=== PATIENT | female | born 1970 | race Hispanic/Latino ===

== ENCOUNTER 2017-05-22 10:35 | Emergency (ER) | payer OTHER ==
[~2017-05-22] VITALS: Ht 152.4 cm; Wt 62.0 kg
[2017-05-22] MEDS ORDERED: FLEXERIL PO (12:28)
[2017-05-22] MEDS ORDERED: ULTRAM50 M1 PO (12:28)
[2017-05-22 13:12] VITALS: BP 138/79
== END 2017-05-22 13:12 | disposition home or self-care (01) | DRG 605 ==
LOC: ED 10:35
DX: S00.93XA Contusion of unspecified part of head, initial encounter (principal); S13.9XXA Sprain of joints and ligaments of unspecified parts of neck, initial encounter; S33.5XXA Sprain of ligaments of lumbar spine, initial encounter; W18.39XA Other fall on same level, initial encounter; Y93.89 Activity, other specified; Y92.89 Other specified places as the place of occurrence of the external cause